=== PATIENT | male | born 1950 | race Caucasian/White ===

== ENCOUNTER 2016-05-12 08:56 | Day surgery (SDC) | payer OTHER ==
[2016-05-11 12:21] VITALS: BMI 44.1
[2016-05-12] MEDS ORDERED: LIDOCAINE 1%/EPI 1:100000 (50 ML MULTI DOSE VIAL) ONE (10:42)
[2016-05-12] MEDS ORDERED: BUPIVACAINE HCL/PF 0.5% (5MG/ML) 10 ML VIAL ONE (10:42)
[2016-05-12] MEDS ORDERED: KETOROLAC TROMETHAMINE 30 MG/1 ML VIAL ONE (10:43)
[2016-05-12] MEDS ORDERED: DEXAMETHASONE SOD PHOSPHATE 4 MG/1 ML VIAL ONE (10:43)
[2016-05-12] MEDS ORDERED: MIDAZOLAM HCL 2 MG/2 ML SINGLE DOSE VIAL ONE (10:44)
[2016-05-12] MEDS ORDERED: ePHEDrine SULFATE 50 MG/1 ML AMPULE ONE (10:44)
[2016-05-12] MEDS ORDERED: ceFAZolin SODIUM 1 GM VIAL ONE (11:08)
[2016-05-12] MEDS ORDERED: ceFAZolin SODIUM 1 GM VIAL IVPB ONE (11:11)
[2016-05-12] MEDS ORDERED: BUPIVACAINE HCL/PF 0.5% (5MG/ML) 10 ML VIAL IJ ONE (11:15)
[2016-05-12] MEDS ORDERED: oxyCODONE HCL 5 MG TABLET PO PRN (11:15)
[2016-05-12] MEDS ORDERED: LIDOCAINE 1%/EPI 1:100000 (50 ML MULTI DOSE VIAL) PNB ONE ×2 (11:15)
[2016-05-12] MEDS ORDERED: LACTATED RINGERS SOLUTION 1,000 ML IV SCH ×2 (11:15→11:45)
[2016-05-12] MEDS ORDERED: ONDANSETRON 4 MG/2 ML VIAL IVPUSH PRN (11:15)
[2016-05-12 12:24] VITALS: TEMP 98.2
[2016-05-12 12:39] VITALS: PULSE 74
[2016-05-12 13:43] VITALS: BP 106/70
--- NOTE | 2016-05-12 18:34 | OP ---
DATE OF OPERATION: 05/12/2016 SURGICAL ATTENDING: Danilo Kevin MD PREOPERATIVE DIAGNOSIS: Upper back mass. POSTOPERATIVE DIAGNOSIS: Upper back mass. ANESTHESIA: Local with sedation. PROCEDURE: Upper back mass excision. DESCRIPTION OF PROCEDURE: The patient was taken into the operating room and placed in the prone position. All pressure points were checked and protected. He was then prepped and draped in the usual sterile fashion. Local anesthesia was administered. An elliptical incision was made, approximately 4 cm in length, circumscribing the upper back mass. A knife was used to excise the lesion, approximately 2 cm beneath the surface of the skin. The lesion was sent to Pathology for evaluation. Hemostasis was achieved with electrocautery and sutures. The wound was then closed with Vicryl sutures and nylon sutures. Hemostasis was achieved. Sterile dressings were placed. The patient was then awakened and taken to recovery in stable condition. Dr. Kevin, the attending surgeon, was present throughout the entire procedure. Quynh [id number]
--- NOTE | 2016-05-15 13:59 | PATH ---
Surgical Pathology Report Patient Name: LILIANE BAIRD [facility]. Rec. #: [id number] /Age/Gender: 1950 (Age: 65) / M Account: [id number] Location: [facility] SURGICAL Taken: 05/12/2016 Received: 05/12/2016 Reported: 05/15/2016 Physicians: Danilo Kevin M.D. Specimen(s) Received MASS OF POSTERIOR NECK UPPER BACK Clinical History Neck mass Final Diagnosis SKIN AND SOFT TISSUE, POSTERIOR NECK/UPPER BACK, MASS, EXCISION: EPIDERMAL INCLUSION CYST. Electronically Signed Marcel Barber M.D. Gross Description Received in formalin, labeled "posterior neck upper back mass" is a 4.0 x 2.8 x 2.5 cm portion of soft tissue which is partially surfaced by a 3.6 x 1.7 cm schuster, elliptical, unremarkable portion of skin. Sectioning reveals an intact cyst containing schuster sebaceous material. Separately received within the same container is a 2.9 x 1.5 x 1.0 cm schuster-yellow, irregular, unoriented portion of soft tissue. Sectioning reveals unremarkable soft tissue. [employer] sections are submitted in 2 cassettes as follows: 1-cyst; 2-sections of separately received soft tissue. /05/12/201605/12/2016
== END 2016-05-12 13:30 | disposition home or self-care (01) ==
LOC: JASU-SURG 08:56
PROVIDERS: ATTEND Surgery
PROC: 0JB70ZZ Excision of Back Subcutaneous Tissue and Fascia, Open Approach (ICD-10-PCS; principal; 2016-05-12 10:30)
DX: L72.0 Epidermal cyst (principal)
CPT/HCPCS: 88304-TC; 94760